=== PATIENT | female | born 1960 | race Caucasian/White ===

== ENCOUNTER 2019-10-27 13:32 | Outpatient (CLI) | payer OTHER ==
--- NOTE | 2019-10-27 17:12 | MRI Report ---
PROCEDURE: Ankle RT W/O INDICATIONS: ANKLE INSTABILITY TECHNIQUE: Noncontrast coronal and sagittal T1 spin echo and STIR; axial T1 spin echo and T2 fast spin echo with fat saturation through the right ankle. COMPARISON: None. FINDINGS: Image quality: Excellent. Bones and joints: There is prominent marrow edema within the talus. No discrete fracture line is identified. Tibiotalar joint effusion is present. Additional marrow edema present within the medial malleolus. No suspicious osseous lesion of the midfoot or hindfoot bones is present. No osteochondral defects. There is diffuse hindfoot and midfoot degenerative spurring and subchondral sclerosis Medial structures: Deltoid ligament intact. Spring ligament intact. Posterior tibialis intact. There is trace adjacent fluid raising possibility of mild tenosynovitis Flexor digitorum longus intact. There is minimal adjacent fluid Flexor hallucis longus intact Posterior tibial neurovascular bundle appears normal within the tarsal tunnel, without extrinsic mass effect. Lateral structures: Anterior talofibular ligament intact. Calcaneofibular ligament intact. Posterior talofibular ligament intact. Anterior tibiofibular ligament intact. Posterior tibiofibular ligament intact. Peroneus longus normal Peroneus brevis normal. Mild, possibly reactive, edema in the region of the sinus tarsi, however there appears to be preserve d normal fatty signal. Anterior structures: Dorsal talonavicular ligament intact. Tibialis anterior normal Extensor hallucis longus normal. Extensor digitorum longus normal Posterior and plantar structures: Achilles tendon intact. There is mild adjacent edema within the adjacent soft tissues. The medial and lateral bands of the plantar fascia are within normal limits. IMPRESSION: Prominent marrow edema within the medial malleolus and talus, probably representing marrow contusions . The nearby deltoid ligament appears grossly intact although mild thickening and amorphous signal ch rhea suggest low-grade sprain. Achilles tendon grossly intact. There is mild adjacent soft tissue edema raising the possibility of m inimal tendinopathy. Mild posterior tibialis tenosynovitis. Tibiotalar joint effusion Reviewed by: Armand Hare MD on 10/27/2019 5:10 PM PDT Approved by: Armand Hare MD on 10/27/2019 5:10 PM PDT Station ID: [id number]
== END 2019-10-27 13:33 | disposition home or self-care (01) ==
LOC: DI 13:32
PROVIDERS: ATTEND Physician Assistant
DX: M25.371 Other instability, right ankle (principal); M65.871 Other synovitis and tenosynovitis, right ankle and foot; M25.471 Effusion, right ankle

== ENCOUNTER 2019-10-27 13:34 | Outpatient (CLI) | payer OTHER ==
--- NOTE | 2019-10-28 08:14 | DEXA Report ---
Reason: POST MENOPAUSAL Procedure Date: 10/27/2019 Accession Number: [id number] / [id number] Procedure: DEX - Dexa Spine and/or Hip CPT Code: Final Report FULL RESULT: PROCEDURE: Dexa Spine and/or Hip INDICATIONS: POST MENOPAUSAL TECHNIQUE: Dual energy x-ray absorptiometry (DXA) was performed on a [employer] System. Regions measured are the AP Spine, femoral neck, and if needed forearm. COMPARISON: None. FINDINGS: Lumbar Spine: Bone Mineral Density 0.768 g/cm/cm,T score -3.4, Osteoporosis Left Femoral Neck: Bone Mineral Density 0.721 g/cm/cm, T score -2.3, Osteopenia (T score greater or equal to -1.0: NORMAL) (T score from -1.1 to -2.4: OSTEOPENIA) (T score less than or equal to -2.5 to: OSTEOPOROSIS) Impression: Osteoporosis. Patient is at high risk for fracture. Patients with diagnosis of osteoporosis or osteopenia should have regular bone mineral density assessment. For those eligible for Medicare, routine testing is allowed once every 2 years. Testing frequency can be increased for patients who have rapidly progressing disease or for those who are receiving medical therapy to restore bone mass. Reviewed by: Lobo Wirght MD on 10/28/2019 8:12 AM PDT Approved by: Lobo Wright MD on 10/28/2019 8:12 AM PDT Station ID: [id number]
== END 2019-10-27 13:35 | disposition home or self-care (01) ==
LOC: DI 13:34
PROVIDERS: ATTEND Nurse Practitioner Family
DX: M81.0 Age-related osteoporosis without current pathological fracture (principal); Z78.0 Asymptomatic menopausal state
CPT/HCPCS: 77080

== ENCOUNTER 2020-12-18 13:52 | Outpatient (CLI) | payer OTHER ==
--- NOTE | 2020-12-18 17:00 | DEXA Report ---
PROCEDURE: Dexa Spine and/or Hip INDICATIONS: OSTEOPOROSIS TECHNIQUE: Dual energy x-ray absorptiometry (DXA) was performed on a [employer] [facility] System. Regions measur ed are the AP Spine, femoral neck, and if needed forearm. COMPARISON: 10/27/2019 FINDINGS: Lumbar Spine: Bone Mineral Density 0.789 g/cm/cm,T score -3.3, osteoporosis Left Hip: Bone Mineral Density 0.734 g/cm/cm,T score -2.2, osteopenia Left Femoral Neck: Bone Mineral Density 0.682 g/cm/cm, T score -2.6, osteoporosis (T score greater or equal to -1.0: NORMAL) (T score from -1.1 to -2.4: OSTEOPENIA) (T score less than or equal to -2.5 to: OSTEOPOROSIS) Impression: Osteoporosis. Bone marrow density has increased 1.8% in the interval since prior exam obt ained 10/27/2019. Patients with diagnosis of osteoporosis or osteopenia should have regular bone mineral density assess ment. For those eligible for Medicare, routine testing is allowed once every 2 years. Testing frequ ency can be increased for patients who have rapidly progressing disease or for those who are receivin g medical therapy to restore bone mass. Reviewed by: Usha Torre MD, PhD on 12/18/2020 4:59 PM PDT Approved by: Usha Torre MD, PhD on 12/18/2020 4:59 PM PDT Station ID: [id number]
== END 2020-12-18 13:53 | disposition home or self-care (01) ==
LOC: DI 13:52
PROVIDERS: ATTEND Internal Medicine Endocrinology, Diabetes & Metabolism
DX: M81.0 Age-related osteoporosis without current pathological fracture (principal)

== ENCOUNTER 2023-01-13 10:41 | Outpatient (CLI) | payer OTHER ==
--- NOTE | 2023-01-13 16:40 | DEXA Report ---
PROCEDURE: Dexa Spine and/or Hip INDICATIONS: OSTEOPOROSIS TECHNIQUE: Dual energy x-ray absorptiometry (DXA) was performed on a [employer] System. Regions measur ed are the AP Spine, femoral neck, and if needed forearm. COMPARISON: 12/18/2020 FINDINGS: Lumbar Spine: Bone Mineral Density 0.776 g/cm/cm,T score -3.4. There has been no statistically significant change in bone mineral density since the prior study. Left Femoral Neck: Bone Mineral Density 0.752 g/cm/cm, T score -2.1. Previous T score -2.6. Left Hip: Bone Mineral Density 0.779 g/cm/cm,T score -1.8. Since the most recent prior study, there has been a statistically significant increase in bone mineral density by 6.1 percent. (T score greater or equal to -1.0: NORMAL) (T score from -1.1 to -2.4: OSTEOPENIA) (T score less than or equal to -2.5 to: OSTEOPOROSIS) Impression: By WHO criteria, this patient has osteoporosis. No statistical interval change in bone mineral density of the lumbar spine. Interval statistical incr ease in bone mineral density of the hip. Patients with diagnosis of osteoporosis or osteopenia should have regular bone mineral density assess ment. For those eligible for Medicare, routine testing is allowed once every 2 years. Testing frequ ency can be increased for patients who have rapidly progressing disease or for those who are receivin g medical therapy to restore bone mass. Reviewed by: Lanre Savage MD on 01/13/2023 4:38 PM PDT Approved by: Lanre Savage MD on 01/13/2023 4:38 PM PDT Station ID: [id number]
== END 2023-01-13 10:42 | disposition home or self-care (01) ==
LOC: DI 10:41
PROVIDERS: ATTEND Internal Medicine Endocrinology, Diabetes & Metabolism
DX: M81.0 Age-related osteoporosis without current pathological fracture (principal)